=== PATIENT | female | born 1955 | race Caucasian/White ===

== ENCOUNTER 2017-06-16 13:32 | Inpatient (IN) | payer OTHER ==
[~2017-06-16] VITALS: Ht 165.1 cm; Wt 86.0 kg
[~2017-06-16 13:32] MED LIST: AMOXICILLIN; GLIMEPIRIDE PO; GLIMEPIRIDE4 MG PO; GLUCOPHAGE; HYDROCODONE-AP1 EA12; LASIX40 MG PO; LEXAPRO PO; LEXAPRO20 MG PO; LIPITOR PO; LIPITOR10 MG PO; LISINOPRIL PO; LISINOPRIL20 MG PO; METFORMIN HCL1000 MG PO; METFORMIN PO; NEXIUM40 MG PO; PROMETHAZINE; SPIRONOLACTONE25 MG PO; SPIRONOLACTONE50 MG PO
--- NOTE | 2017-06-16 14:08 | Diagnostic Imaging Report ---
EXAMINATION: Chest, CHEST SINGLE (PORTABLE) INDICATION: Shortness of breath. COMPARISON: None FINDINGS: LINES: None. Heart: Normal cardiac silhouette. Vascular: The pulmonary vasculature is within normal limits. Atherosclerotic calcifications of the aortic arch. Mediastinum: No mediastinal, hilar, or axillary mass or lymphadenopathy. Lungs: Near total opacification of the left hemithorax. Minimal aeration of the left upper lobe is noted. The right lung is clear. Pleura: Large left pleural effusion. No pneumothorax. Bones: No acute osseous abnormality. Degenerative changes of the thoracic spine. Soft tissues: Normal. Impression: Large left pleural effusion with near total atelectasis of the left lung. Signed by: Dr. Von Caldera M.D. on 06/16/2017 2:04 PM
[2017-06-16 14:16] LABS: BASOPHILS # (AUTO) 0.1 (0.0-0.1); BASOPHILS % 0.2 % (0.0-1.0); HEMATOCRIT 28.2 % (34.2-44.1); HEMOGLOBIN 8.5 g/dL (12.0-16.0); LYMPHOCYTES # (AUTO) 0.5 (1.0-3.2); LYMPHOCYTES % 2.3 % (18.0-39.1); MEAN CORPUSCULAR HEMOGLOBIN 21.9 pg (28-32); MEAN CORPUSCULAR HGB CONC 30.1 g/dL (31-35); MEAN CORPUSCULAR VOLUME 72.5 fL (81-99); MONOCYTES # (AUTO) 1.8 (0.2-0.8); MONOCYTES % 7.6 % (4.4-11.3); NEUTROPHILS # (AUTO) 21.2 (2.1-6.9); NEUTROPHILS % 88.5 % (38.7-80.0); PLATELET COUNT 209 x10e3/uL (140-360); RED BLOOD COUNT 3.89 x10e6/uL (3.6-5.1); RED CELL DISTRIBUTION WIDTH 17.7 % (11.7-14.4)
[2017-06-16 14:28] LABS: INR 1.97; PROTHROMBIN TIME 23.5 seconds (11.9-14.5)
[2017-06-16 14:29] LABS: PARTIAL THROMBOPLASTIN TIME 35.4 seconds (23.8-35.5)
[2017-06-16 14:38] LABS: ALBUMIN 1.8 g/dL (3.5-5.0); ALBUMIN/GLOBULIN RATIO 0.4 (0.8-2.0); ANION GAP 11.9 mmol/L (8-16); CREATININE, SERUM 1.45 mg/dL (0.57-1.11); POTASSIUM 3.9 mmol/L (3.5-5.1)
[2017-06-16 14:44] LABS: CREATINE KINASE MB 1.3 ng/mL (0.00-5.00); TROPONIN I 0.003 ng/mL (0-0.300)
[2017-06-16 14:45] LABS: B-TYPE NATRIURETIC PEPTIDE2 160.9 pg/mL (0-100)
[2017-06-16 14:49] LABS: BAND NEUTROPHILS % (MANUAL) 9 %; LYMPHOCYTES % (MANUAL) 3 % (19-48); MONOCYTES % (MANUAL) 5 % (3.4-9.0); NEUTROPHILS % (MANUAL) 83 % (40-74)
[2017-06-16 14:50] LABS: PLATELET ESTIMATE ADEQUATE; PLATELET MORPHOLOGY COMMENT FEW LARGE; RBC MORPHOLOGY COMMENT NORMAL
[2017-06-16] MEDS ORDERED: PIPER-TAZ 3.375 GM/NS 50 ML 50 ML IV STA (15:55)
[2017-06-16] MEDS ORDERED: SODIUM CHLORIDE FLUSH 10 ML SYR INJ PRN (16:00)
[2017-06-16] MEDS ORDERED: AZITHROMYCIN 500MG/SOD CHL 0.9% 250ML BAG IV SCH (16:00)
[2017-06-16] MEDS ORDERED: HYDROMORPHONE 1MG/1ML INJ IV STA (16:02)
[2017-06-16] MEDS ORDERED: ONDANSETRON HCL INJ 2 MG/ML VIAL IV ONE (16:30)
[2017-06-16] MEDS ORDERED: DEXTROSE 50% SYRINGE 50 ML IV PRN (17:45)
[2017-06-16] MEDS ORDERED: SODIUM CHLORIDE 0.9% 500ML 500 ML IV SCH (17:45)
[2017-06-16 17:50] LABS: % IRON SATURATION 4 % (15-50); IRON 12 ug/dL (50-170); TOTAL IRON BINDING CAPACITY 290 ug/dL (261-478); TRANSFERRIN 207 mg/dL (180-382)
[2017-06-16] MEDS ORDERED: PHYTONADIONE 10 MG/ML AMP SQ ONE (18:15)
[2017-06-16 20:00] VITALS: BP 98/65
[2017-06-16 20:46] LABS: BILIRUBIN,URINE 1+ (NEGATIVE); CLARITY,URINE CLOUDY (CLEAR); COLOR,URINE YELLOW (YELLOW); KETONES,URINE NEGATIVE (NEGATIVE); LEUKOCYTE ESTERASE ,URINE NEGATIVE (NEGATIVE); NITRITE,URINE NEGATIVE (NEGATIVE); URINE UROBILINOGEN 4 mg/dL (0.2 - 1)
[2017-06-16 20:50] LABS: PROTEIN,URINE DIPSTICK 1+ (NEGATIVE)
[2017-06-16 20:57] LABS: BACTERIA,URINE MODERATE /HPF; EPITHELIAL CELLS,URINE MODERATE /LPF; TRANSITIONAL EPI CELLS,URINE FEW
[2017-06-16] MEDS: WATER STERILE 10 ML VIAL INJ SCH (20:58)
[2017-06-16] MEDS: CEFEPIME HCL 1 GM VIAL IV SCH (20:58)
[2017-06-16] MEDS: ATORVASTATIN 10 MG TAB PO SCH (20:58)
[2017-06-16] MEDS: INSULIN LISPRO 100 UNIT/1 ML 3ML VIAL SQ SCH (21:00)
[2017-06-17] VITALS: BP 100/67
[2017-06-17 04:00] VITALS: BP 95/70
[2017-06-17] MEDS ORDERED: INFLUENZA VIRUS VAC SPLIT INJ 0.5 ML SYR IM ONE (04:45)
[2017-06-17] MEDS ORDERED: PNEUMOCOCCAL VACCINE POLYVALENT 23 MCG/0.5 ML VIAL IM ONE (04:45)
[2017-06-17] MEDS: CEFEPIME HCL 1 GM VIAL IV SCH ×2 (05:26→18:51)
[2017-06-17] MEDS: WATER STERILE 10 ML VIAL INJ SCH (05:26)
[2017-06-17 06:18] LABS: BASOPHILS % 0.1 % (0.0-1.0); EOSINOPHILS % 0.1 % (0.0-6.0); HEMATOCRIT 24.7 % (34.2-44.1); LYMPHOCYTES # (AUTO) 0.6 (1.0-3.2); LYMPHOCYTES % 2.6 % (18.0-39.1); MEAN CORPUSCULAR HEMOGLOBIN 21.2 pg (28-32); MEAN CORPUSCULAR HGB CONC 29.6 g/dL (31-35); MEAN CORPUSCULAR VOLUME 71.6 fL (81-99); MONOCYTES # (AUTO) 1.7 (0.2-0.8); NEUTROPHILS # (AUTO) 18.9 (2.1-6.9); NEUTROPHILS % 87.4 % (38.7-80.0); PLATELET COUNT 192 x10e3/uL (140-360); RED BLOOD COUNT 3.45 x10e6/uL (3.6-5.1); RED CELL DISTRIBUTION WIDTH 17.6 % (11.7-14.4)
[2017-06-17 06:32] LABS: HEMOGLOBIN 7.3 g/dL (12.0-16.0)
[2017-06-17 06:48] LABS: INR 2.22; PROTHROMBIN TIME 25.8 seconds (11.9-14.5)
[2017-06-17 06:56] LABS: ALBUMIN 1.6 g/dL (3.5-5.0); ALBUMIN/GLOBULIN RATIO 0.5 (0.8-2.0); CREATININE, SERUM 1.43 mg/dL (0.57-1.11)
[2017-06-17] MEDS ORDERED: SODIUM CHLORIDE 0.9% 250ML 250 ML IV ONE (07:00)
[2017-06-17 07:51] LABS: LYMPHOCYTES % (MANUAL) 2 % (19-48); METAMYELOCYTES % (MANUAL) 1 % (0-0); MONOCYTES % (MANUAL) 6 % (3.4-9.0); MYELOCYTES % (MANUAL) 1 % (0-0); NEUTROPHILS % (MANUAL) 90 % (40-74); PLATELET ESTIMATE ADEQUATE
[2017-06-17 07:52] LABS: ANISOCYTOSIS MODERATE; HYPOCHROMASIA MODERATE; RBC MORPHOLOGY COMMENT ABNORMAL
[2017-06-17 07:53] LABS: PLATELET MORPHOLOGY COMMENT FEW GIANT
[2017-06-17 08:00] VITALS: BP 103/57
[2017-06-17] MEDS: PANTOPRAZOLE SOD 40 MG TABEC PO SCH (08:50)
[2017-06-17] MEDS: GLIMEPIRIDE 2 MG TAB PO SCH ×2 (08:50→18:49)
[2017-06-17] MEDS: DIPHENHYDRAMINE HCL INJ 50 MG/ML VIAL IV ONE ×2 (08:52→15:23)
[2017-06-17] MEDS: INSULIN LISPRO 100 UNIT/1 ML 3ML VIAL SQ SCH ×4 (08:52→20:30)
[2017-06-17] MEDS ORDERED: LISINOPRIL 20 MG TAB PO SCH (09:00)
[2017-06-17] MEDS ORDERED: LISINOPRIL 2.5 MG TAB PO SCH (09:00)
[2017-06-17] MEDS ORDERED: LISINOPRIL 2.5 MG TAB PO PRN (09:00)
[2017-06-17] MEDS: HYDROMORPHONE 1MG/1ML INJ IV PRN (09:05)
--- NOTE | 2017-06-17 09:37 | Consultation ---
DATE OF CONSULTATION: June 17, 2017 GASTROENTEROLOGY CONSULTATION REASON FOR CONSULTATION: Cirrhosis. HISTORY OF PRESENT ILLNESS: Ms. Lopez is a pleasant 63-year-old woman who is known to my colleague Dr. Suarez. She has decompensated cirrhosis. She has a standing order at [facility] for paracentesis. She recently went twice with the last being on Saturday at which time she reports they removed approximately 6.4 L. After that, she did not feel well and noticed significant decrease in her urination, as well as a foul odor to her urine. She also did not have a bowel movement until last night. She has not had any black tarry stools or blood in her stool. She has had no vomiting or hematemesis. Her last upper endoscopy was approximately [address] Suarez. She reports no history of esophageal varices. Similarly, she had a colonoscopy with Dr. Suarez about a couple of months ago. She denies any overt bleeding and has had no altered mental status or tremulousness. She has some cramping her hands and some neck and back pain, as well as some occasional mild abdominal pain, but nothing significant. She has no leaking of the paracentesis site. She has had shortness of breath, which is unusual for her. She does not report a history of hepatic hydrothorax or thoracentesis. She was seen downtown by Dr. Jordan at [facility], who is her transplant adjunct nursing faculty. She is not currently listed, but reports that is secondary to a low MELD score. PAST MEDICAL HISTORY 1. Cirrhosis secondary to the combination of fatty liver and remote alcohol manifested with decompensation of ascites and volume overload. 2. Hypertension. 3. Diabetes. 4. Peripheral artery disease. 5. Heart disease. SURGICAL HISTORY: Includes cholecystectomy and hysterectomy. MEDICATIONS: Reviewed. Please see [facility] medication reconciliation form. ALLERGIES: REVIEWED PLEASE SEE [facility] MEDICATION RECONCILIATION FORM. SOCIAL HISTORY: No recent alcohol, tobacco or illicit substance use. FAMILY HISTORY: Reviewed and noncontributory. REVIEW OF SYSTEMS: A 10-system review is positive for feeling mildly febrile over the weekend. Otherwise, as per HPI. PHYSICAL EXAMINATION GENERAL: She is pleasant, alert and oriented. Looks pale. No acute distress. HEENT: Pupils equal, round and reactive to light. NECK: Supple. LUNGS: Decreased particularly on the left. CARDIOVASCULAR: S1 and S2. ABDOMEN: Soft. She has ascites. She is mildly tender throughout. There is a fluid wave. She has normal bowel sounds. EXTREMITIES: No clubbing or cyanosis. PSYCH: Calm and cooperative. NEUROLOGIC: Alert and oriented. No asterixis. HEM/ONC: No significant ecchymosis or adenopathy. The electronic health records were reviewed for laboratory and radiologic studies, as well as the HPI. ASSESSMENT 1. Decompensated cirrhosis with ascites: Recent paracentesis and hepatic hydrothorax. 2. Renal insufficiency: I am not sure what her baseline is, but she may have some decompensation of her renal function related to recent large volume paracentesis. She has also low sodium, hyponatremia. It is 128, which may be related as well. 3. Anemia: No overt gastrointestinal bleeding. No history of varices. Recent upper and lower endoscopy. 4. Significant leukocytosis concerning for infection of fluid, such as peritonitis or pneumonia: Urine is not suggestive of urinary tract infection. PLAN: At the current time, I would continue to treat her aggressively with antimicrobial. We will need to review her records at [facility] from her recent paracentesis to see if any fluid studies were done. Given the renal insufficiency and hyponatremia, she may not tolerate diuresis and may need nephrology consult. Given the hydrothorax, she will probably need a thoracentesis after she gets blood, and if required correction of her hypercoagulability. Note, she will be seen by Dr. Brower. In the meantime, will try to minimize IV fluids here, as well as restrict salt intake. Thank you very much for asking me to see Ms. Lopez. Any questions or concerns, please do not hesitate to contact me. Will follow with you. Job#: [id number] KEIKO YO
[2017-06-17] MEDS: PHYTONADIONE 10 MG/ML AMP SC SCH (10:15)
[2017-06-17] MEDS: FUROSEMIDE 40 MG TAB PO SCH (10:15)
[2017-06-17] MEDS: ESCITALOPRAM OXALATE 10 MG TAB PO SCH (10:15)
[2017-06-17] MEDS: LACTULOSE SYRUP 20 GM/30 ML UDC PO SCH (10:15)
[2017-06-17] MEDS: SPIRONOLACTONE 25 MG TAB PO SCH (10:15)
[2017-06-17] MEDS ORDERED: SODIUM CHLORIDE 1 GM TAB PO SCH ×2 (11:30→11:45)
--- NOTE | 2017-06-17 11:39 | Consultation ---
DATE OF CONSULTATION: ATTENDING PHYSICIAN: Ori Bernal MD REASON FOR CONSULTATION: Peritonitis. HISTORY OF PRESENT ILLNESS: This is a 53-year-old white female who has a history of liver disease, liver cirrhosis, alcoholism and probably also fatty liver according to her. The patient was in [place] recently and underwent paracentesis. She was discharged home. She says she is feeling weak. No fever or chills, but the cultures came back positive for strep and gram negative. Dr. Bernal contacted me yesterday, and she was started on cefepime. The patient is feeling weakness, no specific complaint. PAST MEDICAL HISTORY: Liver cirrhosis, fatty liver, alcoholism, hypertension, diabetes, obesity, peripheral vascular disease, heart disease. PAST SURGICAL HISTORY: Cholecystectomy, hysterectomy. ALLERGIES: NKA. SOCIAL HISTORY: There is currently no smoking, drug abuse or alcohol abuse. FAMILY HISTORY: Otherwise unremarkable. REVIEW OF SYSTEMS HEENT: There are no visual changes or hearing changes. GI: There is no nausea, no vomiting, no diarrhea. Some abdominal pain. MUSCULOSKELETAL: Her joints have chronic aches and pains. OTHER: Except as mentioned above, all negative. LABORATORY DATA: Reviewed. White count was 23.9, hemoglobin 8.5, hematocrit 28, platelets 209. Sodium 128, potassium 4.0, creatinine 1.43. Her cultures are still pending over here. She said the culture was done in [place]. PHYSICAL EXAMINATION GENERAL: She is currently alert and oriented, does not seem to be in acute distress. VITALS: Stable, currently afebrile. HEENT: She is not icteric. NECK: Supple. CHEST: Clear. COR: No murmur. ABDOMEN: Soft. Distended. EXTREMITIES: No edema. SKIN: No rash. IMPRESSION AND PLAN 1. Peritonitis with streptococcus plus gram negative. Will get the culture and sensitivity. Continue with cefepime. 2. Liver cirrhosis. 3. Chronic kidney disease. 4. Obesity. 5. Hyponatremia. 6. Will follow with you. Job#: [id number]
[2017-06-17 12:00] VITALS: BP 101/55
[2017-06-17 12:19] LABS: THYROID STIMULATING HORMONE 1.755 uIU/mL (0.350-4.940)
--- NOTE | 2017-06-17 12:33 | History and Physical ---
This is a patient of Dr. Jordan, Dr. Kulwinder Jensen, Dr. Suarez, Dr. Brower and Dr. Sanchez. This charming 61-year-old woman with a history of cirrhosis related to fatty liver and alcoholism, history of carotid stenosis and history of diabetes, was admitted with fever this morning. She underwent paracentesis of 6.4 liters on 06/14/2017. Preliminary report suggests strep infection and gram negatives. She has had gallbladder surgery, hysterectomy, sinus surgery. Bowel surgery she denies. Smoked for 1 year. Was an commercial account officer. PHYSICAL EXAMINATION GENERAL: Elderly white female looking much older than her stated age. VITAL SIGNS: Temperature 98.8, pulse 102, respirations 20, blood pressure 102/60. HEENT: Head is normocephalic and atraumatic. Some temporal wasting. HEART: Regular rhythm. LUNGS: Diminished breath sounds in the left chest. ABDOMEN: Ascites is present, nontender. EXTREMITIES: Not edematous. IMPRESSION: Spontaneous bacterial peritonitis. PLAN: Gram-negative cover. Hepatic hydrothorax. Consider thoracentesis when the coagulopathy has been corrected. She may require fresh frozen plasma. Will check iron levels. Liver functions are elevated. Bilirubin is 1.5. BUN and creatinine are also elevated at this time. White count is 22.9, hemoglobin 8.5, with microcytic indices. He was initially referred by Dr. Jordan for transfusion. Creatinine is 1.45. Bilirubin is 2.56. Alkaline phosphatase 0.77. Prognosis is poor. Patient requests full measures at this time. Job#: [id number]
--- NOTE | 2017-06-17 12:48 | Diagnostic Imaging Report ---
PROCEDURE:US CHEST (INCL MEDIASTINUM) COMPARISON:Chest radiograph 06/16/2017. INDICATIONS:Pleural effusion FINDINGS:See conclusion CONCLUSION: Transverse and longitudinal sonographic imaging of the bilateral hemithoraces shows a moderate left pleural effusion and a small right pleural effusion. Dictated by: Ori Ramos M.D. on 06/17/2017 at 12:57 Electronically approved by: Ori Ramos M.D. on 06/17/2017 at 12:57
--- NOTE | 2017-06-17 12:56 | Diagnostic Imaging Report ---
PROCEDURE:US RETROPERITONEAL ( KIDNEY ). COMPARISON:None. INDICATIONS:WERO TECHNIQUE: Thomason-scale and color sonographic images of the bilateral kidneys and bladder where obtained in transverse and longitudinal planes. FINDINGS: RIGHT KIDNEY: 7.6 cm in length, cortical thickness 2.1 cm Cysts: None Solid masses: None Stones: None Hydronephrosis: None Echogenicity: Normal renal cortical echogenicity. LEFT KIDNEY: 10.9 cm in length, cortical thickness 1.5 cm. Cysts: None Solid masses: None Stones: None Hydronephrosis: None Echogenicity: Normal renal cortical echogenicity. Bladder: Collapsed and poorly evaluated. Incidental note of moderate ascites and mild splenomegaly. CONCLUSION: Diminutive right kidney. Otherwise unremarkable sonographic appearance of the kidneys. Moderate ascites and mild splenomegaly. Dictated by: Ori Ramos M.D. on 06/17/2017 at 13:04 Electronically approved by: Ori Ramos M.D. on 06/17/2017 at 13:04
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
[2017-06-17] MEDS ORDERED: ALBUMIN 5% 250ML IV SCH (14:00)
[2017-06-17] MEDS: ALBUMIN 5% 250 ML IV SCH ×3 (14:35→23:00)
[2017-06-17] MEDS ORDERED: DIPHENHYDRAMINE HCL INJ 1 ML ONE (15:45)
[2017-06-17] MEDS ORDERED: SODIUM CHLORIDE 0.9% 250ML 250 ML ONE (15:46)
[2017-06-17 16:00] VITALS: BP 97/66
[2017-06-17 20:00] VITALS: BP 102/69
[2017-06-17] MEDS: ONDANSETRON HCL INJ 2 MG/ML VIAL IV PRN (20:05)
[2017-06-17] MEDS: ATORVASTATIN 10 MG TAB PO SCH (20:30)
[2017-06-18 00:30] VITALS: BP 107/69
[2017-06-18] MEDS: CEFEPIME HCL 1 GM VIAL IV SCH ×2 (05:39→17:26)
[2017-06-18] MEDS: ALBUMIN 5% 250 ML IV SCH (06:00)
[2017-06-18 07:23] LABS: BASOPHILS % 0.1 % (0.0-1.0); EOSINOPHILS # (AUTO) 0.1 (0.0-0.4); EOSINOPHILS % 0.7 % (0.0-6.0); LYMPHOCYTES # (AUTO) 0.6 (1.0-3.2); LYMPHOCYTES % 3.7 % (18.0-39.1); MEAN CORPUSCULAR HEMOGLOBIN 22.1 pg (28-32); MEAN CORPUSCULAR HGB CONC 30.8 g/dL (31-35); MEAN CORPUSCULAR VOLUME 71.8 fL (81-99); MONOCYTES # (AUTO) 1.6 (0.2-0.8); MONOCYTES % 9.3 % (4.4-11.3); NEUTROPHILS # (AUTO) 14.3 (2.1-6.9); NEUTROPHILS % 83.7 % (38.7-80.0); PLATELET COUNT 146 x10e3/uL (140-360); RED BLOOD COUNT 3.62 x10e6/uL (3.6-5.1); RED CELL DISTRIBUTION WIDTH 16.9 % (11.7-14.4)
[2017-06-18] MEDS: INSULIN LISPRO 100 UNIT/1 ML 3ML VIAL SQ SCH ×4 (07:30→21:00)
[2017-06-18] MEDS: GLIMEPIRIDE 2 MG TAB PO SCH ×2 (07:30→16:30)
[2017-06-18] MEDS: PANTOPRAZOLE SOD 40 MG TABEC PO SCH (07:30)
[2017-06-18 07:44] LABS: ANION GAP 9.5 mmol/L (8-16); CALCIUM 7.8 mg/dL (8.4-10.2); CREATININE, SERUM 1.24 mg/dL (0.57-1.11); MAGNESIUM 1.5 MG/DL (1.3-2.1); PHOSPHORUS 2.9 MG/DL (2.3-4.7); POTASSIUM 3.5 mmol/L (3.5-5.1)
[2017-06-18 07:48] VITALS: BP 93/54
[2017-06-18 08:23] LABS: INR 1.97; PROTHROMBIN TIME 23.5 seconds (11.9-14.5)
[2017-06-18 09:00] VITALS: BP 110/58
[2017-06-18] MEDS: PHYTONADIONE 10 MG/ML AMP SC SCH (09:00)
[2017-06-18] MEDS: SODIUM FERRIC GLUCONATE COMPLX 125 MG in SODIUM CHLORIDE 0.9% 100 ML 100 ML IV SCH (09:00)
[2017-06-18] MEDS: LACTULOSE SYRUP 20 GM/30 ML UDC PO SCH (09:00)
[2017-06-18] MEDS: SPIRONOLACTONE 25 MG TAB PO SCH (09:00)
[2017-06-18] MEDS: FUROSEMIDE 40 MG TAB PO SCH (09:00)
[2017-06-18] MEDS: ESCITALOPRAM OXALATE 10 MG TAB PO SCH (09:00)
[2017-06-18 09:22] LABS: CREATININE,URINE RANDOM 100.47 mg/dL (47-110); TOTAL PROTEIN, URINE 25.6 mg/dL (1-14)
[2017-06-18 09:27] LABS: SODIUM,URINE < 20 mmol/L
[2017-06-18 10:35] LABS: EOSINOPHIL SMEAR,URINE NONE SEEN (NONE SEEN)
[2017-06-18 12:46] VITALS: BP 179/72
[2017-06-18] MEDS ORDERED: SODIUM CHLORIDE 0.9% 500ML 500 ML IV ONE (13:45)
[2017-06-18] MEDS ORDERED: POTASSIUM CHLORIDE 20MEQ/100ML 100 ML IV ONE ×2 (14:00)
[2017-06-18] MEDS: SODIUM CHLORIDE 1 GM TAB PO SCH ×2 (15:00→21:00)
[2017-06-18] MEDS: ONDANSETRON HCL INJ 2 MG/ML VIAL IV PRN ×2 (15:00→18:55)
[2017-06-18 17:26] VITALS: BP 102/60
[2017-06-18] MEDS: HYDROMORPHONE 1MG/1ML INJ IV PRN (19:58)
[2017-06-18 20:00] VITALS: BP 115/56
[2017-06-18] MEDS: ATORVASTATIN 10 MG TAB PO SCH (20:37)
[2017-06-19] VITALS (7 sets, daily range): BP systolic 98–116; BP diastolic 53–72
[2017-06-19] MEDS: HYDROMORPHONE 1MG/1ML INJ IV PRN (04:50)
[2017-06-19] MEDS: CEFEPIME HCL 1 GM VIAL IV SCH ×2 (05:41→18:00)
[2017-06-19 06:23] LABS: ANION GAP 10.7 mmol/L (8-16); CALCIUM 8.1 mg/dL (8.4-10.2); CREATININE, SERUM 1.15 mg/dL (0.57-1.11); POTASSIUM 3.7 mmol/L (3.5-5.1)
[2017-06-19] MEDS: PANTOPRAZOLE SOD 40 MG TABEC PO SCH (07:30)
[2017-06-19] MEDS: INSULIN LISPRO 100 UNIT/1 ML 3ML VIAL SQ SCH ×4 (07:30→21:00)
[2017-06-19 07:57] LABS: INR 1.9; PROTHROMBIN TIME 22.8 seconds (11.9-14.5)
[2017-06-19] MEDS: GLIMEPIRIDE 2 MG TAB PO SCH ×2 (08:00→17:00)
[2017-06-19] MEDS: LACTULOSE SYRUP 20 GM/30 ML UDC PO SCH ×2 (09:00→17:00)
[2017-06-19] MEDS: SPIRONOLACTONE 25 MG TAB PO SCH (09:00)
[2017-06-19] MEDS: ESCITALOPRAM OXALATE 10 MG TAB PO SCH (09:00)
[2017-06-19] MEDS ORDERED: CITRATE OF MAGNESIA 300ML BOTTLE PO PRN ×2 (09:00→18:15)
[2017-06-19] MEDS: PHYTONADIONE 10 MG/ML AMP SC SCH (09:00)
[2017-06-19] MEDS: SODIUM FERRIC GLUCONATE COMPLX 125 MG in SODIUM CHLORIDE 0.9% 100 ML 100 ML IV SCH (09:00)
[2017-06-19] MEDS: FUROSEMIDE 40 MG TAB PO SCH (09:00)
[2017-06-19] MEDS: DOCUSATE SODIUM 100 MG CAP PO SCH ×2 (09:00→17:00)
[2017-06-19] MEDS: SODIUM CHLORIDE 1 GM TAB PO SCH ×3 (09:00→21:05)
--- NOTE | 2017-06-19 09:43 | Diagnostic Imaging Report ---
PROCEDURE:CHEST 2 VIEWS TECHNIQUE:PA and lateral chest INDICATION:Pneumonia; pleural effusion COMPARISON:[facility], US, US CHEST (INCL MEDIASTINUM), 06/17/2017, 12:17. Patients [facility], DX, CHEST SINGLE (PORTABLE), 06/16/2017, 13:38. FINDINGS: Moderate left pleural effusion with left lower lobe and partial left upper lobe collapse. Marked leftward mediastinal shift with right lung hyperinflation. Grossly intact skeleton. CONCLUSION: There is a moderate-sized left pleural effusion with superimposed left lower lobe and partial left upper lobe collapse resulting in leftward mediastinal deviation. Postobstructive pneumonia may be present. Dictated by: Maxx Luke M.D. on 06/19/2017 at 9:51 Electronically approved by: Maxx Luke M.D. on 06/19/2017 at 9:51
[2017-06-19] MEDS ORDERED: HYDROMORPHONE 1MG/1ML INJ IV PRN (10:00)
[2017-06-19] MEDS ORDERED: SODIUM BICARBONATE 8.4% INJ 50 ML SYR IV STA (11:01)
--- NOTE | 2017-06-19 12:51 | Diagnostic Imaging Report ---
Ultrasound-guided Thoracentesis June 19, 2017 Pre-Procedure Diagnosis: Left pleural effusion; respiratory distress. Post-procedure Diagnosis:The pleural effusion; respiratory distress. Maintenance Supervisor 2Nd Shift: Trev Luke Differential Specialist: None Sedation: None. 1% lidocaine local anesthesia. Estimate blood loss: <5 mL Blood administered: None Complications: None Implants/Grafts: None Specimen: 550 mL cloudy serous fluid. Procedure: Informed consent was obtained and the patient positioned in a sitting position in the ultrasound suite. A timeout was performed, followed by preliminary ultrasound of the chest. The back was prepped and draped in standard sterile fashion. Using real-time ultrasound guidance a 5-Syrian one-step centesis needle was advanced into the left thoracic cavity. An image was stored in the electronic medical record. 550 mL of cloudy serous fluid was aspirated. At the end of the procedure the catheter was removed and a sterile dressing applied. The patient tolerated the procedure well. No complications. Findings: Large volume left effusion with multiple septations and pleural thickening. Impression: Successful ultrasound-guided left thoracentesis with removal of 550 mL of fluid. Samples were submitted for laboratory and pathology evaluation. This report was generated with voice-recognition technology. Errors in delivery representative can occur. Please interpret accordingly and contact a radiologist if there are any questions regarding the report. Signed by: Dr. Maxx Luke M.D. on 06/19/2017 12:47 PM
--- NOTE | 2017-06-19 12:51 | Diagnostic Imaging Report ---
Ultrasound-guided Thoracentesis June 19, 2017 Pre-Procedure Diagnosis: Left pleural effusion; respiratory distress. Post-procedure Diagnosis:The pleural effusion; respiratory distress. Gis Database Administrator: Trev Luke Oil Rigger: None Sedation: None. 1% lidocaine local anesthesia. Estimate blood loss: <5 mL Blood administered: None Complications: None Implants/Grafts: None Specimen: 550 mL cloudy serous fluid. Procedure: Informed consent was obtained and the patient positioned in a sitting position in the ultrasound suite. A timeout was performed, followed by preliminary ultrasound of the chest. The back was prepped and draped in standard sterile fashion. Using real-time ultrasound guidance a 5-Grenadian one-step centesis needle was advanced into the left thoracic cavity. An image was stored in the electronic medical record. 550 mL of cloudy serous fluid was aspirated. At the end of the procedure the catheter was removed and a sterile dressing applied. The patient tolerated the procedure well. No complications. Findings: Large volume left effusion with multiple septations and pleural thickening. Impression: Successful ultrasound-guided left thoracentesis with removal of 550 mL of fluid. Samples were submitted for laboratory and pathology evaluation. This report was generated with voice-recognition technology. Errors in media analyst can occur. Please interpret accordingly and contact a radiologist if there are any questions regarding the report. Signed by: Dr. Maxx Luke M.D. on 06/19/2017 12:47 PM
--- NOTE | 2017-06-19 13:10 | Diagnostic Imaging Report ---
PROCEDURE:CHEST XRAY POST PROCEDURE TECHNIQUE:Portable AP chest INDICATION:Left thoracentesis COMPARISON:[facility], DX, CHEST 2 VIEWS, 06/19/2017, 9:03. FINDINGS: See conclusion. CONCLUSION: 1. Interval left thoracentesis with decrease in pleural effusion. 2. Unchanged left lower lobe and partial left upper lobe collapse. There is progressive leftward mediastinal shift consistent with decreased pleural fluid from recent thoracentesis. 3. No pneumothorax. 4. Right lung is clear. 5. CT chest with contrast is recommended to evaluate for central obstruction. Dictated by: Maxx Luke M.D. on 06/19/2017 at 13:17 Electronically approved by: Maxx Luke M.D. on 06/19/2017 at 13:17
[2017-06-19 13:49] LABS: BODY FLUID APPEARANCE SL.CLOUDY; BODY FLUID COLOR YELLOW; BODY FLUID TYPE PLEURAL
[2017-06-19 13:50] LABS: RBC,BODY FLUID 1091 cells/uL; WBC,BODY FLUID 147 cells/uL
[2017-06-19 14:05] LABS: GLUCOSE,BODY FLUID < 5 mg/dL
[2017-06-19] MEDS: MAGNESIUM HYDROXIDE 30 ML UDC PO PRN (14:40)
[2017-06-19 14:48] LABS: LYMPHOCYTES,BODY FLUID 8 %; MONO/MACROPHG,BODY FLUID 5 %; NEUTROPHILS,BODY FLUID 87 %
--- NOTE | 2017-06-19 19:17 | Consultation ---
DATE OF CONSULTATION: June 19, 2017 REFERRING PHYSICIAN: Dr. Ori Bernal I would like to thank Dr. Bernal for asking me to see Ms. Lopez. REASONS FOR CONSULTATION 1. Hepatic cirrhosis. 2. Debility secondary to cirrhosis. 3. EtOH abuse. 4. Hypertension. 5. Diabetes. HISTORY: This 53-year-old female, with history of liver disease and cirrhosis of the liver, who was admitted to [place] and underwent paracentesis, went home and then started feeling weak. No fever or chills, but cultures came back positive for strep. She was seen by Dr. Brower and found to have peritonitis growing out strep gram negative. Overall, she is doing a little bit better. However, she is quite debilitated. I am being asked to evaluate for rehab needs. PAST MEDICAL HISTORY: Includes cirrhosis of the liver, fatty liver, alcoholism, hypertension, diabetes, peripheral vascular disease, heart disease. SURGERIES: Cholecystectomy, hysterectomy. ALLERGIES: NO KNOWN DRUG ALLERGIES. HABITS: Nonsmoker, nondrinker. SOCIAL HISTORY: Lives with her in a 1-story home. She states she does not have a walker or assistive device but was a very limited ambulator premorbidly. FAMILY HISTORY: Unremarkable. CONSTITUTIONAL REVIEW OF SYSTEMS GENERAL: She has generalized weakness. EYES: Denies. EARS: Denies. ORAL: Denies. NECK: Denies. CARDIAC: Denies. GI: As above. : Denies. SKIN: Denies. HEMATOLOGY: Denies. LABS: White cell count 17, which is trending downwards. Hemoglobin 8.0, hematocrit 26.0, platelets 146. Sodium 129, potassium 3.7, BUN 34, creatinine 1.15. IMAGING: Chest x-ray: Interval left thoracocentesis with decrease in pleural effusion and unchanged left lower lobe and partial left upper lobe collapse. There is progressive left mediastinal shift consistent with decreased pleural fluid from recent thoracocentesis. No pneumothorax. The right lung is clear. PHYSICAL THERAPY: Patient modified independent with bed mobility. O2 sats did go down to 90% to 92% with activity. Ambulates with no base of support. [place] nauseated and was limited with regards to her incentive to mobilize. Definitely not back to her prior level of function. PHYSICAL EXAMINATION GENERAL: Awake, alert, in no apparent distress. Follows commands. EYES: Gaze is conjugate. ORAL: Tongue is midline. NECK: Supple. HEART: Regular. LUNGS: Diminished breath sounds. ABDOMEN: She does have some distention most likely from ascites. EXTREMITIES: She is weak in the upper extremities, but stronger in the lower extremities. Demonstrates 4-/5 in upper extremities bilaterally, but 4+/5 strength in the lower extremities bilaterally. No conus at this time. The tone is normal within the achievable range of motion. IMPRESSION 1. Debility secondary to cirrhosis of the liver. 2. Pleural effusions, status post tap. 3. Patient with alcohol abuse. 4. Hypertension. 5. Diabetes. PLAN: The patient is not back to her prior level of function. We will work on transfers, gait and ADLs. Work on functional mobility. PRECAUTIONS: Falls. We will follow along with you. Thank you, once again, for allowing me to participate in the care of this pleasant but unfortunate patient. LESLI BOSE DO Job#: [id number]
[2017-06-19] MEDS: ATORVASTATIN 10 MG TAB PO SCH (21:05)
[2017-06-19] MEDS: ONDANSETRON HCL INJ 2 MG/ML VIAL IV PRN (21:05)
[2017-06-20] VITALS: BP 96/53
[2017-06-20] MEDS: HYDROMORPHONE 1MG/1ML INJ IV PRN ×2 (02:18→21:40)
[2017-06-20 04:00] VITALS: BP 93/56
[2017-06-20] MEDS: CEFEPIME HCL 1 GM VIAL IV SCH ×2 (06:24→17:23)
[2017-06-20 06:52] LABS: BASOPHILS % 0.1 % (0.0-1.0); EOSINOPHILS # (AUTO) 0.2 (0.0-0.4); HEMATOCRIT 24.4 % (34.2-44.1); LYMPHOCYTES # (AUTO) 0.5 (1.0-3.2); LYMPHOCYTES % 3.1 % (18.0-39.1); MEAN CORPUSCULAR HEMOGLOBIN 21.9 pg (28-32); MEAN CORPUSCULAR HGB CONC 30.7 g/dL (31-35); MEAN CORPUSCULAR VOLUME 71.3 fL (81-99); MONOCYTES # (AUTO) 1.6 (0.2-0.8); MONOCYTES % 10.3 % (4.4-11.3); NEUTROPHILS % 83.4 % (38.7-80.0); PLATELET COUNT 131 x10e3/uL (140-360); RED BLOOD COUNT 3.42 x10e6/uL (3.6-5.1); RED CELL DISTRIBUTION WIDTH 17.6 % (11.7-14.4)
[2017-06-20 07:07] LABS: HEMOGLOBIN 7.5 g/dL (12.0-16.0)
[2017-06-20] MEDS: PANTOPRAZOLE SOD 40 MG TABEC PO SCH (07:30)
[2017-06-20] MEDS: INSULIN LISPRO 100 UNIT/1 ML 3ML VIAL SQ SCH ×4 (07:30→21:00)
[2017-06-20 07:31] LABS: ANION GAP 10.7 mmol/L (8-16); CREATININE, SERUM 1.24 mg/dL (0.57-1.11); POTASSIUM 3.7 mmol/L (3.5-5.1)
[2017-06-20 08:00] VITALS: BP 100/67
[2017-06-20] MEDS: GLIMEPIRIDE 2 MG TAB PO SCH ×2 (08:00→16:50)
[2017-06-20] MEDS ORDERED: DIATRIZOATE MEGL/DIATRIZOA SOD 30 ML BTL PO ONE (08:20)
[2017-06-20] MEDS: SPIRONOLACTONE 25 MG TAB PO SCH (08:45)
[2017-06-20] MEDS: FUROSEMIDE 40 MG TAB PO SCH (08:45)
[2017-06-20] MEDS: ESCITALOPRAM OXALATE 10 MG TAB PO SCH (08:45)
[2017-06-20] MEDS: PHYTONADIONE 10 MG/ML AMP SC SCH (08:45)
[2017-06-20] MEDS: SODIUM CHLORIDE 1 GM TAB PO SCH (08:45)
[2017-06-20] MEDS: LACTULOSE SYRUP 20 GM/30 ML UDC PO SCH ×3 (08:45→21:35)
[2017-06-20] MEDS: DOCUSATE SODIUM 100 MG CAP PO SCH ×2 (08:45→16:50)
[2017-06-20] MEDS ORDERED: DIPHENHYDRAMINE HCL INJ 50 MG/ML VIAL IV ONE (09:00)
[2017-06-20] MEDS ORDERED: SODIUM CHLORIDE 0.9% 250ML 250 ML IV ONE (09:00)
[2017-06-20] MEDS ORDERED: FAMOTIDINE 20 MG/2 ML VIAL IV ONE (09:00)
[2017-06-20] MEDS: SODIUM FERRIC GLUCONATE COMPLX 125 MG in SODIUM CHLORIDE 0.9% 100 ML 100 ML IV SCH (10:00)
--- NOTE | 2017-06-20 10:27 | Diagnostic Imaging Report ---
CT scan chest, abdomen and pelvis. June 20, 2017 Clinical history: Pleural effusion; pneumonia. Abdominal discomfort; shortness of breath Technique: Routine protocol CT chest, abdomen and pelvis. No intravenous contrast. No enteric contrast was administered. Coronal, sagittal and axial images generated from source data. Dose: 942.5 mGy-cm Comparison: None Findings: Lungs: Near complete left lung collapse. Subsegmental right lower lobe atelectasis. Right upper and middle lobes are hyperinflated. 2 cm ill-defined, triangular groundglass opacity (image 65, series 4) anterior right upper lobe. Airways: Trachea and central bronchi are patent. No bronchiectasis. No conspicuous intraluminal lesion. Pleura: Small right and large left pleural effusion. Diffuse left pleural thickening with nodularity along the visceral pleura measuring up to 1.6 cm (see image 40, series 2). No definitive nodularity along the parietal pleura. No conspicuous right pleural thickening. Thoracic lymph nodes: Normal. Limited evaluation of the left hilum secondary to deviation/left lobe collapse. Pulmonary arteries: Normal caliber Thoracic aorta and great vessels: Normal caliber. Mild atherosclerosis. Heart and pericardium: Normal size. No pericardial effusion. Moderate coronary artery atherosclerosis. Liver: Nodular margin with caudate and left lobe hypertrophy. Scattered calcified granulomas. Gallbladder: Cholecystectomy Pancreas: Normal Spleen: Span 17 cm. Adrenal glands: Normal Kidneys: Normal Ureters and urinary bladder: Normal Uterus and adnexa: Hysterectomy Bowel: Normal caliber. Peritoneum: Moderate volume ascites. Abdominal vasculature: Normal caliber. Scattered aortic and iliac artery atherosclerosis. Abdominal lymph nodes: Normal Skeleton: Severe multilevel degenerative disc disease of the thoracolumbar spine. Chronic L1 superior endplate insufficiency fracture with about 25% loss of vertebral body height. Multiple subacute right rib fractures (5, 6, 7) Soft tissues: Anasarca without drainable fluid collection. Widespread muscle atrophy. Impression: 1. Continued near complete left lung collapse with associated complex left pleural effusion as evidenced by diffuse pleural thickening, with pleural nodularity along the visceral pleura. No central bronchial obstruction. Evaluation of the left lung parenchyma is extremely limited given collapse. 2. Small right pleural effusion, moderate ascites, and anasarca consistent with volume overload. 3. Cirrhotic liver morphology with associated sequela of portal hypertension including marked splenomegaly. 4. Wedge-shaped 2 cm focus of groundglass opacity within the anterior aspect of the right upper lobe. This is indeterminant and will require follow-up CT. Does not have an aggressive or malignant appearance. This may represent focal infection or sequela of remote trauma given the presence of subacute fractures. 5. Subacute right rib fractures. Chronic L1 superior endplate insufficiency fracture. 6. The study is significantly limited by the lack of intravenous contrast. This report was generated with voice-recognition technology. Errors in research center director can occur. Please interpret accordingly and contact a radiologist if there are any questions regarding the report. Signed by: Dr. Maxx Luke M.D. on 06/20/2017 10:23 AM
[2017-06-20 12:00] VITALS: BP 115/76
[2017-06-20] MEDS: ALBUTEROL SULF 0.083% NEB SOLN 3 ML NEB NEB SCH ×2 (13:16→19:31)
[2017-06-20] MEDS: ALBUMIN HUMAN 12.5GM / 50ML IV SCH ×2 (14:00→21:35)
[2017-06-20 16:00] VITALS: BP 107/57
[2017-06-20] MEDS: ACETYLCYSTEINE 20% INHAL SOLN 30 ML VIAL INH SCH (19:31)
[2017-06-20 20:00] VITALS: BP 107/61
[2017-06-20] MEDS: ATORVASTATIN 10 MG TAB PO SCH (21:35)
[2017-06-21] VITALS: BP 121/72
[2017-06-21] MEDS ORDERED: MINERAL OIL 132 ML BTL PR ONE (00:15)
[2017-06-21] MEDS: ALBUTEROL SULF 0.083% NEB SOLN 3 ML NEB NEB SCH ×3 (01:10→13:21)
[2017-06-21] MEDS: MAGNESIUM HYDROXIDE 30 ML UDC PO PRN (04:51)
[2017-06-21] MEDS: HYDROMORPHONE 1MG/1ML INJ IV PRN (04:51)
[2017-06-21 04:59] VITALS: BP 112/76
[2017-06-21] MEDS: CEFEPIME HCL 1 GM VIAL IV SCH ×2 (05:57→17:25)
[2017-06-21] MEDS: ALBUMIN HUMAN 12.5GM / 50ML IV SCH (05:57)
--- NOTE | 2017-06-21 06:18 | Diagnostic Imaging Report ---
EXAM: CHEST SINGLE (PORTABLE), AP 1 view DATE: 06/21/2017 7:00 AM Time stamp on exam: 0528 hours INDICATION: Atelectasis COMPARISON: AP view of the chest June 19, [address] of the chest without IV contrast June 20, 2017 FINDINGS: LINES/TUBES: None LUNGS: Persistent near complete opacification of the left lung. Right lower lobe atelectasis. PLEURA: Small layering right pleural effusion. Large left pleural effusion. HEART AND MEDIASTINUM: Obscured BONES AND SOFT TISSUES: No acute findings. IMPRESSION: No interval change in exam Signed by: Dr. Kellen Pitts M.D. on 06/21/2017 6:15 AM
[2017-06-21 06:28] LABS: BASOPHILS % 0.2 % (0.0-1.0); EOSINOPHILS # (AUTO) 0.2 (0.0-0.4); EOSINOPHILS % 1.3 % (0.0-6.0); HEMATOCRIT 25.9 % (34.2-44.1); HEMOGLOBIN 8.2 g/dL (12.0-16.0); LYMPHOCYTES # (AUTO) 0.5 (1.0-3.2); LYMPHOCYTES % 2.9 % (18.0-39.1); MEAN CORPUSCULAR HEMOGLOBIN 22.9 pg (28-32); MEAN CORPUSCULAR HGB CONC 31.7 g/dL (31-35); MEAN CORPUSCULAR VOLUME 72.3 fL (81-99); MONOCYTES # (AUTO) 1.4 (0.2-0.8); MONOCYTES % 9.2 % (4.4-11.3); NEUTROPHILS # (AUTO) 13.1 (2.1-6.9); PLATELET COUNT 126 x10e3/uL (140-360); RED BLOOD COUNT 3.58 x10e6/uL (3.6-5.1); RED CELL DISTRIBUTION WIDTH 18.6 % (11.7-14.4)
[2017-06-21 06:52] LABS: INR 2.09; PROTHROMBIN TIME 24.6 seconds (11.9-14.5)
[2017-06-21 06:53] LABS: PARTIAL THROMBOPLASTIN TIME 47.9 seconds (23.8-35.5)
[2017-06-21 07:04] LABS: ANION GAP 13.5 mmol/L (8-16); CALCIUM 8.5 mg/dL (8.4-10.2); CREATININE, SERUM 1.27 mg/dL (0.57-1.11); POTASSIUM 3.5 mmol/L (3.5-5.1)
[2017-06-21] MEDS: INSULIN LISPRO 100 UNIT/1 ML 3ML VIAL SQ SCH ×3 (07:30→16:30)
[2017-06-21 08:00] VITALS: BP 112/85
[2017-06-21] MEDS: GLIMEPIRIDE 2 MG TAB PO SCH ×2 (08:00→17:25)
[2017-06-21] MEDS: DOCUSATE SODIUM 100 MG CAP PO SCH ×2 (09:00→17:25)
[2017-06-21] MEDS: LACTULOSE SYRUP 20 GM/30 ML UDC PO SCH ×2 (09:00→15:24)
[2017-06-21 10:17] LABS: BAND NEUTROPHILS % (MANUAL) 1 %; LYMPHOCYTES % (MANUAL) 2 % (19-48); MONOCYTES % (MANUAL) 4 % (3.4-9.0); NEUTROPHILS % (MANUAL) 93 % (40-74)
[2017-06-21 10:19] LABS: ANISOCYTOSIS MODERATE; HYPOCHROMASIA SLIGHT; PLATELET ESTIMATE SLIGHTLY DECREASED; PLATELET MORPHOLOGY COMMENT FEW LARGE; RBC MORPHOLOGY COMMENT ABNORMAL
[2017-06-21 12:00] VITALS: BP 102/63
[2017-06-21] MEDS: ESCITALOPRAM OXALATE 10 MG TAB PO SCH (12:13)
[2017-06-21] MEDS: PHYTONADIONE 10 MG/ML AMP SC SCH (12:13)
[2017-06-21] MEDS: FUROSEMIDE 40 MG TAB PO SCH (12:13)
[2017-06-21] MEDS: PANTOPRAZOLE SOD 40 MG TABEC PO SCH (12:13)
[2017-06-21] MEDS: ACETYLCYSTEINE 20% INHAL SOLN 30 ML VIAL INH SCH (13:21)
[2017-06-21] MEDS ORDERED: IRON SUCROSE 100 MG in SODIUM CHLORIDE 0.9% 100 ML 100 ML IV SCH (14:30)
--- NOTE | 2017-06-21 15:05 | Discharge Summary ---
This is a patient of Dr. Kulwinder Jensen, Dr. Suarez, Dr. Fish, Dr. Trivedi, Dr. Maya, Dr. Brower and Dr. Jordan. This is a charming but unfortunate 61-year-old woman with a history of cirrhosis and ascites related to fatty liver and alcoholism. History of carotid disease and diabetes. She was admitted with fever on the . She had a routine paracentesis on the . This fluid showed 2 strep organisms and E. coli, which was a sensitive organism. Four liters were drained at that time. She has a history of gallbladder surgery, hysterectomy, sinus surgery, bowel surgery. Smoked for 1 year. Worked as an aerospace engineer officer armament. It was felt to be spontaneous bacterial peritonitis. She also had a large left pleural effusion. Because of her coagulopathy, thoracentesis could not be performed for several days. The fluid was an exudate with high LDH when it was drained. Cultures and Gram stain are still pending. Decortication was considered as well as bronchoscopy because of the poor re-expansion. Bronchoscopy was scheduled. On the day of the bronchoscopy, arrangements were made to transfer the patient to [facility] to the [facility], and bronchoscopy was deferred as well as surgical opinion. Hemoglobin on admission was 8.5, white count 24,000. The white count fell to 15.4. The patient's hemoglobin did drop twice to 7.3 and 7.5, and she received 1 unit of packed cells on each occasion. Platelet count remained low normal, actually dropping at the time of discharge to 126. Liver function as well as renal function were compromised. Creatinine stabilized at 1.27. The pleural fluid had 147 white cells, 1000 red cells, 87% neutrophils. Glucose was less than 5. Total protein 1.4 and LDH 792 consistent with empyema or possibly a parapneumonic effusion. There were 550 mL drained by the interventional radiologist; however, multiple large loculations remained. The patient was continued on Lexapro, Lasix 40, Protonix 40, vitamin K 5 mg, albuterol nebulizer treatments, cefepime 1 g q.12 h., hydromorphone 1 mg p.r.n., magnesium hydroxide for constipation, lactulose, Amaryl 4 mg b.i.d., sliding-scale insulin. She was discharged to the [facility]. She will likely require decortication and continued antibiotics. CT scan will accompany the patient. Unfortunately, the pleural fluid cultures are still pending. Thank you for this kind referral. SUBHASH DESAI MD Job#: [id number]
[2017-06-21 16:00] VITALS: BP 130/66
[2017-06-23 12:00] VITALS: BP 137/60
== END 2017-06-21 18:40 | disposition short-term general hospital (02) | DRG 372 ==
LOC: ER 13:32 → ERHOLD 16:18 → MED/SURG2 16:39
PROVIDERS: ADMIT Internal Medicine Pulmonary Disease; ATTEND Internal Medicine Pulmonary Disease
PROC: 30233N1 Transfusion of Nonautologous Red Blood Cells into Peripheral Vein, Percutaneous Approach (ICD-10-PCS; 2017-06-17)
PROC: 0W9B3ZX Drainage of Left Pleural Cavity, Percutaneous Approach, Diagnostic (ICD-10-PCS; principal; 2017-06-19)
DX: K65.2 Spontaneous bacterial peritonitis (principal); N17.9 Acute kidney failure, unspecified; J90 Pleural effusion, not elsewhere classified; E11.22 Type 2 diabetes mellitus with diabetic chronic kidney disease; I85.00 Esophageal varices without bleeding; E87.1 Hypo-osmolality and hyponatremia; N18.3 Chronic kidney disease, stage 3 (moderate); E11.51 Type 2 diabetes mellitus with diabetic peripheral angiopathy without gangrene; S22.39XA Fracture of one rib, unspecified side, initial encounter for closed fracture; K70.31 Alcoholic cirrhosis of liver with ascites; K70.0 Alcoholic fatty liver; I65.29 Occlusion and stenosis of unspecified carotid artery; E87.70 Fluid overload, unspecified; D63.8 Anemia in other chronic diseases classified elsewhere; I12.9 Hypertensive chronic kidney disease with stage 1 through stage 4 chronic kidney disease, or unspecified chronic kidney disease; E66.9 Obesity, unspecified; Z68.31 Body mass index [BMI] 31.0-31.9, adult; K72.90 Hepatic failure, unspecified without coma; Z79.4 Long term (current) use of insulin; R53.81 Other malaise
CPT/HCPCS: 32555; 36415; 36430; 71010; 71020; 71250; 74176; 74470; 76604; 76770; 80048; 80053; 81001; 81015; 82040; 82140; 82533; 82550; 82553; 82570; 82945; 82947; 82948; 83540; 83605; 83615; 83735; 83880; 83935; 84100; 84132; 84156; 84157; 84295; 84300; 84443; 84466; 84478; 84484; 84520; 85025; 85610; 85730; 86850; 86900; 86920; 87040; 87070; 87071; 87075; 87086; 87116; 87205; 87206; 89051; 90732; 93005; 99284; J0456; J0692; J1170; J1200; J1756; J2405; J2543; J2916; J3430; J3480; J7040; J7050; P9016